=== PATIENT | female | born 1980 | race Hispanic/Latino ===

== ENCOUNTER → 2021-11-23 | Outpatient (CLI) | payer BC | END | disposition home or self-care (01) | LOC: RAH 08:22 | PROVIDERS: ATTEND Physical Medicine & Rehabilitation | DX: M47.26 Other spondylosis with radiculopathy, lumbar region (principal); M51.27 Other intervertebral disc displacement, lumbosacral region; M46.1 Sacroiliitis, not elsewhere classified | CPT/HCPCS: 72148 ==

== ENCOUNTER 2021-12-21 05:53 | Observation (INO) | payer BC ==
[2021-12-19 15:40] VITALS: BP 135/87
[2021-12-19 15:48] LABS: BASOPHILS % (AUTO) 0.8 % (0.0-5.0); HEMATOCRIT 44.2 % (36-48); LYMPHOCYTES % (AUTO) 26.7 % (21.0-51.0); MEAN CORPUSCULAR HEMOGLOBIN 29.1 pg (27.0-33.0); MEAN CORPUSCULAR HGB CONC 32.8 g/dL (32.0-36.0); MEAN CORPUSCULAR VOLUME 88.6 fL (79-99); MONOCYTES % (AUTO) 8.7 % (3.0-13.0); NEUTROPHILS % (AUTO) 61.5 % (40.0-77.0); PLATELET COUNT (AUTO) 468 K/uL (130-400); RED BLOOD CELL COUNT(AUTO) 4.99 MIL/uL (4.00-5.50); RED CELL DISTRIBUTION WIDTH 12.7 % (11.0-15.5); WHITE BLOOD COUNT (AUTO) 12.3 K/uL (4.8-10.8)
[2021-12-19 15:57] LABS: CREATININE 0.8 mg/dL (0.5-1.5)
[2021-12-21] VITALS (20 sets, daily range): BP systolic 103–126; BP diastolic 55–90
[~2021-12-21] VITALS: Ht 162.6 cm; Wt 96.1 kg
[~2021-12-21 05:53] MED LIST: CHOL500045 PO; GABA300C PO; LISI1TAB51 PO
[2021-12-21] MEDS ORDERED: LACTATED RINGERS 1000ML 1,000 ML IV ONE (06:31)
[2021-12-21] MEDS ORDERED: CEFAZOLIN SODIUM 1 GM VIAL ONE ×2 (06:31→06:54)
[2021-12-21] MEDS ORDERED: BUPIVACAINE/EPI/PF 0.5% 30ML VIAL IJ ONE (06:54)
[2021-12-21] MEDS ORDERED: MORPHINE PF 100MG/10ML AMP IV ONE (06:55)
[2021-12-21] MEDS ORDERED: THROMBIN-JMI 5000 UNIT/VIAL TP ONE (06:55)
[2021-12-21] MEDS ORDERED: MIDAZOLAM HCL 1 MG/ML 2ML VIAL ONE ×2 (07:30→09:37)
[2021-12-21] MEDS ORDERED: CEFAZOLIN SODIUM 1 GM VIAL IVP ONE (08:00)
[2021-12-21] MEDS ORDERED: PROPOFOL 10 MG/ML 20ML VIAL IV ONE (09:37)
[2021-12-21] MEDS ORDERED: SUCCINYLCHOLINE CHLORIDE 20 MG/ML 10 ML VIAL ONE (09:37)
[2021-12-21] MEDS ORDERED: LIDOCAINE PF 100MG/5ML (2%) SYRINGE 5ML ONE (09:37)
[2021-12-21] MEDS ORDERED: DEXAMETHASONE SOD PHOSPHATE 10MG/ML 1ML VIAL ONE (09:37)
[2021-12-21] MEDS ORDERED: GLYCOPYRROLATE 1 MG/5 ML SYRINGE ONE (09:37)
[2021-12-21] MEDS ORDERED: FENTANYL CITRATE PF 50 MCG/1 ML 2ML VIAL ONE ×3 (09:38→13:59)
[2021-12-21] MEDS ORDERED: NEOSTIGMINE 5MG/5ML SYR IV ONE (09:38)
[2021-12-21] MEDS ORDERED: ONDANSETRON 4MG INJ ONE ×2 (09:38→15:25)
[2021-12-21] MEDS ORDERED: ROCURONIUM 10MG/1ML SYR 10 MG/ML ML ONE (09:38)
[2021-12-21] MEDS ORDERED: DEXAMETHASONE SOD PHOSPHATE 4 MG/ML 1ML VIAL ONE (09:43)
[2021-12-21] MEDS ORDERED: ARTIFICIAL TEARS 3.5 GM OINTMENT ONE (10:30)
[2021-12-21] MEDS ORDERED: GENTAMICIN 80 MG/NS 100 ML PB 100 ML IV ONE (12:51)
[2021-12-21] MEDS ORDERED: PROMETHAZINE HCL 25 MG/ML 1ML AMPULE IM PRN (15:00)
[2021-12-21] MEDS ORDERED: 0.9%NACL 10ML VIAL IVP PRN (15:00)
[2021-12-21] MEDS ORDERED: MORPHINE 2 MG SYG IVP PRN (15:00)
[2021-12-21] MEDS ORDERED: HYDROCODONE/ACETAMINOPHEN 5/325 MG TAB PO PRN (15:00)
[2021-12-21] MEDS: CEFAZOLIN SODIUM 1 GM VIAL IVP SCH ×2 (15:00→23:51)
[2021-12-21] MEDS ORDERED: MEPERIDINE-PF 25 MG/ML SYG ONE ×2 (15:24→15:45)
[2021-12-21] MEDS ORDERED: KETOROLAC 30MG VIAL (30MG/ML) ONE (15:25)
[2021-12-21] MEDS: DEXAMETHASONE SOD PHOSPHATE 4 MG/ML 1ML VIAL IVP SCH ×2 (18:41→19:33)
[2021-12-21] MEDS: LACTATED RINGERS 1000ML 1,000 ML IV SCH (18:42)
[2021-12-21] MEDS ORDERED: GABAPENTIN 300 MG CAPSULE ONE (19:55)
[2021-12-21] MEDS: GABAPENTIN 300 MG CAPSULE PO SCH (20:17)
[2021-12-21] MEDS ORDERED: 0.9% NACL 500ML IV.SOLN 500 ML IV ONE (23:00)
[2021-12-22] VITALS: BP 120/77
[2021-12-22] MEDS: DEXAMETHASONE SOD PHOSPHATE 4 MG/ML 1ML VIAL IVP SCH ×2 (02:58→09:29)
[2021-12-22] MEDS: LACTATED RINGERS 1000ML 1,000 ML IV SCH (02:58)
[2021-12-22] MEDS: CEFAZOLIN SODIUM 1 GM VIAL IVP SCH (02:59)
[2021-12-22 04:00] VITALS: BP 99/47
[2021-12-22 08:06] VITALS: BP 111/68
[2021-12-22] MEDS ORDERED: **HM**Cholecalciferol (Vitamin D3) (Vitamin D3) 125 MCG PO SCH (09:00)
[2021-12-22] MEDS ORDERED: LISINOPRIL 20 MG TABLET PO SCH (09:00)
[2021-12-22] MEDS ORDERED: HYDROCHLOROTHIAZIDE 25 MG TABLET PO SCH (09:00)
[2021-12-22] MEDS: GABAPENTIN 300 MG CAPSULE PO SCH (09:30)
== END 2021-12-22 12:51 | disposition home or self-care (01) ==
LOC: DAHIP 05:53 → EDSTATUS 08:30 → 4BH 18:07 → 4AH 12-22 05:55
PROVIDERS: ADMIT Neurological Surgery; ATTEND Neurological Surgery
DX: M51.16 Intervertebral disc disorders with radiculopathy, lumbar region (principal); Z20.822 Contact with and (suspected) exposure to COVID-19; M51.26 Other intervertebral disc displacement, lumbar region; I10 Essential (primary) hypertension; M25.78 Osteophyte, vertebrae; E66.3 Overweight; Z68.36 Body mass index [BMI] 36.0-36.9, adult; Z79.899 Other long term (current) drug therapy; Z98.890 Other specified postprocedural states
CPT/HCPCS: 36415; 63047; 63048 ×2; 71045; 72020; 80048; 82948; 84703; 85025; 87635; 93005; 96374; 96375; 96376; A4215; A4221; A4222; A4223; A4344; A4510; A4600; A4649 ×3; A4663; A6260; G0378 ×21; J0330; J0690 ×3; J1100 ×6; J1580; J1885; J2001; J2175 ×2; J2250 ×2; J2274; J2405 ×2; J2704; J2710; J3010 ×3; J3490 ×3; J7120 ×5